=== PATIENT | male | born 1985 | race Caucasian/White ===

== ENCOUNTER → 2019-07-08 | Outpatient (CLI) | payer OTHER ==
--- NOTE | 2019-07-08 11:41 | MRI ---
EXAM DESCRIPTION: Shoulder,Right CLINICAL HISTORY: 33 years, Male, RT SHOULDER PAIN, limited range of motion, cannot lift above head. COMPARISON: None TECHNIQUE: MRI of the right shoulder was performed with multiplanar multi sequence imaging without intravenous contrast. FINDINGS: Rotator tendons: Moderate supraspinatus and mild infraspinatus tendinosis with mild thickening and intermediate signal. No focal rotator cuff tear or tendon retraction. The subscapularis and teres minor tendons are intact. Rotator muscles: No rotator cuff muscle atrophy. Glenoid labrum: Limited evaluation of the labrum (without intra-articular contrast) demonstrate abnormal increased signal within the posterior labrum (for example series 301 image 10) with propagation into the superior labrum. The anterior superior labrum is slightly attenuated. Acromion: The acromion morphology is type two. Bone and joints: No focal bone marrow contusion or fracture. No thickness cartilage defect. Moderate right acromioclavicular joint osteoarthrosis with mild capsular hypertrophy and marginal osteophyte formation. There is lateral downsloping of the acromion with small subacromial enthesophyte. Biceps tendon: Normal course and morphology of the biceps tendon long head within the bicipital groove. The biceps labral anchor appears intact. Soft tissues: No solid or cystic mass is seen. Mild subacromial/subdeltoid bursitis. IMPRESSION: 1. Moderate supraspinatus and mild infraspinatus tendinosis without focal rotator cuff tear or tendon retraction. 2. Posterior labral tear with likely involvement of the superior labrum. 3. Moderate acromioclavicular joint osteoarthrosis and lateral downsloping of the acromion can be a cause for external impingement on the rotator cuff. Mild subacromial/subdeltoid bursitis. Electronically signed by: Enrique Solitario DO 07/08/2019 11:39 AM CDT
== END ==
LOC: MRI 07:16
PROVIDERS: ATTEND Family Medicine
DX: M75.21 Bicipital tendinitis, right shoulder (principal); M19.011 Primary osteoarthritis, right shoulder

== ENCOUNTER → 2019-07-24 | Outpatient (CLI) | payer OTHER ==
--- NOTE | 2019-07-24 08:59 | RAD ---
EXAM DESCRIPTION: Shoulder,Right four x-ray Views CLINICAL HISTORY: shoulder pain COMPARISON: None Available. TECHNIQUE: Four views of the right shoulder. FINDINGS: There is adequate internal and external rotation. Normal alignment on transaxillary view and transscapular Y view. There is no fracture or dislocation. Mild degenerative changes at the right AC joint with small accessory ossicle along the superior aspect of the joint. No focal bone lesion. IMPRESSION: Negative for fracture or dislocation. Electronically signed by: Ehsan Pedersen MD 07/24/2019 8:58 AM CDT
== END ==
LOC: RAD 08:20
PROVIDERS: ATTEND Orthopaedic Surgery
DX: M25.511 Pain in right shoulder (principal)